=== PATIENT | female | born 1990 | race African-American/Black ===

== ENCOUNTER 2016-08-21 11:32 | Outpatient (CLI) | payer OTHER ==
[2016-08-21 12:04] LABS: #Basophils 0.1 thou/uL (0.0-0.2); #Eosinphils 0.4 thou/uL (0.0-0.7); #Lymphocytes 2.5 thou/uL (1.20-3.40); #Monocytes 0.4 thou/uL (0.11-0.59); #Neutrophils 4.2 thou/uL (1.40-6.50); %Basophils 1.3 % (0.0-1.0); %Eosinophils 5.3 % (0.0-10.0); %Monocytes 5.5 % (0.0-10.0); Hematocrit 41.3 % (36.0-47.0); Red Blood Cell (RBC) Count 4.61 mill/uL (4.20-5.40); White Blood Cell (WBC) Count 7.6 thou/uL (4.8-10.8)
[2016-08-21 12:20] LABS: Hemoglobin A1c 5.6 % (4.0-6.0)
[2016-08-21 12:28] LABS: ALT (SGPT) 28 U/L (0-55); AST (SGOT) 21 U/L (5-34); Alkaline Phosphatase 50 U/L (40-150); Anion Gap 12 mmol/L (10-20); BUN (Urea Nitrogen) 11 mg/dL (7.0-18.7); Bilirubin, Total 0.2 mg/dL (0.2-1.2); Calc. Creatinine Clearance 0 mL/min (70-130); Calcium 9.2 mg/dL (7.8-10.44); Carbon Dioxide 26 mmol/L (22-29); Chloride 107 mmol/L (98-107); Estimated GFR-MDRD Greater than 90; Globulin 3.2 g/dL (2.4-3.5); LDL Cholesterol, Calculated 54 mg/dL; Protein, Total 6.9 g/dL (6.0-8.3)
== END 2016-08-21 11:33 | disposition home or self-care (01) ==
LOC: BURLAB 11:32
PROVIDERS: ATTEND Family Medicine
DX: Z00.00 Encounter for general adult medical examination without abnormal findings (principal)
CPT/HCPCS: 36415; 80053; 80061; 80074; 83036; 84443; 85025

== ENCOUNTER 2017-04-18 19:58 | Emergency (ER) | payer OTHER, SELFPAY ==
[2017-04-18] MEDS ORDERED: Ibuprofen 800 MG TAB ONE (20:10)
[2017-04-18] MEDS ORDERED: Sulfameth/Trimethoprim DS 800-160mg TAB ONE ×2 (20:10)
[2017-04-18] MEDS ORDERED: Bacitracin Zinc 1 Packet ONE (20:10)
== END 2017-04-18 20:19 | disposition home or self-care (01) ==
LOC: BURERS 19:58
DX: L02.416 Cutaneous abscess of left lower limb (principal); I42.9 Cardiomyopathy, unspecified
CPT/HCPCS: 99282